=== PATIENT | female | born 1980 | race Two or more races ===

== ENCOUNTER 2022-06-13 13:26 | Emergency (ER) | payer SELFPAY ==
[~2022-06-13] VITALS: Ht 167.6 cm; Wt 91.2 kg
[2022-06-13] MEDS ORDERED: ACETAMINOPHEN 500 MG TAB PO ONE (14:30)
[2022-06-13] MEDS ORDERED: IBUP600T28 PO (14:40)
[2022-06-13] MEDS ORDERED: CYCL-839 PO (14:40)
[2022-06-13 15:11] VITALS: BP 126/82
== END 2022-06-13 15:15 | disposition home or self-care (01) ==
LOC: ER 13:26
DX: M79.89 Other specified soft tissue disorders (principal); Z88.8 Allergy status to other drugs, medicaments and biological substances; S63.502A Unspecified sprain of left wrist, initial encounter; X58.XXXA Exposure to other specified factors, initial encounter; Y93.89 Activity, other specified; Y92.89 Other specified places as the place of occurrence of the external cause; Y99.8 Other external cause status
CPT/HCPCS: 29125; 73130